=== PATIENT | female | born 1990 | race Caucasian/White ===

== ENCOUNTER 2022-08-15 06:31 | Day surgery (SDC) | payer BC, MEDICARE ==
[~2022-08-15 06:31] MED LIST: Albuterol 0.083% 2.5 MG/3 ML Neb Soln NEB PRN; HYDROmorphone 1 MG/ML Syringe IVPUSH PRN; Lactated Ringers 1,000 ML IV SCH; Metoclopramide 10 MG/2 ML SDV IVPUSH PRN; Morphine 2 MG/ML SYRINGE IVPUSH PRN; Naloxone 0.4 MG/ML SDV IVPUSH PRN; Ondansetron 4 MG/2 ML SDV IVPUSH PRN; Scopolamine 1.5 MG Transdermal Patch TOP ONE; Sodium Chloride 0.9% 10 ML Syringe FLUSH PRN; Sodium Chloride 0.9% 2.5 ML Syringe FLUSH PRN; Sodium Chloride 0.9% 20 ML SDV IV PRN; cefOXitin 2 GM in Premix Bag 1 BAG IV ONE; fentaNYL 50 MCG/ML SDV IVPUSH PRN
[2022-08-15] MEDS ORDERED: Bupivacaine 0.5% 30 ML SDV ONE (07:24)
[2022-08-15] MEDS ORDERED: Propofol 200 MG/20 ML SDV ONE (07:34)
[2022-08-15] MEDS ORDERED: Ondansetron 4 MG/2 ML SDV ONE (07:34)
[2022-08-15] MEDS ORDERED: Dexamethasone 4 MG/ML 5 ML MDV ONE (07:34)
[2022-08-15] MEDS ORDERED: fentaNYL 100 MCG/2 ML SDV ONE (07:34)
[2022-08-15] MEDS ORDERED: Lidocaine 2% 5 ML SDV ONE (07:34)
[2022-08-15] MEDS ORDERED: Ketorolac 30 MG/ML SDV ONE (07:34)
[2022-08-15] MEDS ORDERED: cefOXitin 1 GM Vial ONE (09:00)
== END 2022-08-15 11:35 | disposition home or self-care (01) ==
LOC: MW.SDS 06:31
PROVIDERS: ATTEND Surgery
DX: K60.3 Anal fistula (principal); F41.9 Anxiety disorder, unspecified; Z20.822 Contact with and (suspected) exposure to COVID-19; Z98.890 Other specified postprocedural states; Z90.49 Acquired absence of other specified parts of digestive tract; Z87.891 Personal history of nicotine dependence; Z79.899 Other long term (current) drug therapy
CPT/HCPCS: 46020; 81025; A9270; J0694; J1100; J1885; J2405; J2704; J3010; J3490; J7120

== ENCOUNTER 2022-11-29 08:54 | Emergency (ER) | payer BC ==
[2022-11-29] MEDS ORDERED: Ibuprofen 400 MG Tab PO ONE (09:27)
[2022-11-29] MEDS ORDERED: Acetaminophen 325 MG Tab PO ONE (09:27)
[2022-11-29] MEDS ORDERED: Dexamethasone 10 MG/ML SDV PO ONE (09:27)
[2022-11-29] MEDS ORDERED: Polymyxin B/Trimethoprim 10 ML Bottle EYEBOTH ONE (09:29)
[2022-11-29] MEDS ORDERED: Ofloxacin 0.3% Ophth Soln 5 ML Bottle EYEBOTH SCH (10:30)
== END 2022-11-29 10:33 | disposition home or self-care (01) ==
LOC: MW.ED 08:54
DX: J02.9 Acute pharyngitis, unspecified (principal); H10.9 Unspecified conjunctivitis; Z90.49 Acquired absence of other specified parts of digestive tract
CPT/HCPCS: 87651; 99283; A9270; J8540

== ENCOUNTER 2023-04-20 14:20 | Emergency (ER) | payer BC ==
[2023-04-20] MEDS ORDERED: Sodium Chloride 0.9% 2.5 ML Syringe FLUSH PRN (15:40)
[2023-04-20] MEDS ORDERED: Sodium Chloride 0.9% 10 ML Syringe FLUSH PRN (15:40)
[2023-04-20 15:56] LABS: BASOPHILS PERCENT AUTO 0.4 % (0.0-1.5); EOSINOPHILS ABSOLUTE AUTO 0.2 K/uL (0.0-0.7); EOSINOPHILS PERCENT AUTO 3.8 % (0.0-7.0); HEMATOCRIT 36.9 % (36.0-46.0); HEMOGLOBIN 12.1 g/dL (12.0-16.0); LYMPHOCYTES ABSOLUTE AUTO 1.8 K/uL (0.6-2.4); LYMPHOCYTES PERCENT AUTO 37.1 % (16.0-40.0); MEAN CORPUSCULAR HGB CONC 32.8 g/dL (31.0-37.0); MEAN CORPUSCULAR VOLUME 91.3 fL (80.0-98.0); MONOCYTES ABSOLUTE AUTO 0.5 K/uL (0.0-0.8); MONOCYTES PERCENT AUTO 9.9 % (0.0-15.0); NEUTROPHILS ABSOLUTE AUTO 2.3 K/uL (1.4-5.7); NEUTROPHILS PERCENT AUTO 48.8 % (48.0-80.0); NRBC ABSOLUTE 0 K/uL; PLATELET COUNT,PLT 248 K/uL (150-400); RED BLOOD CELL COUNT 4.04 M/uL (4.30-5.90); WHITE BLOOD CELL COUNT,WBC 4.77 K/uL (4.0-11.0)
[2023-04-20 16:26] LABS: ALANINE AMINOTRANSFERASE,ALT 36 IU/L (14-63); ALBUMIN 3.5 g/dL (3.4-5.0); ALKALINE PHOSPHATASE 53 U/L (46-116); ASPARTATE AMNIOTRANSFERASE,AST 21 IU/L (15-37); BILIRUBIN TOTAL 0.3 mg/dL (0.2-1.0); BLOOD UREA NITROGEN,BUN 25 mg/dL (7.0-18.0); CARBON DIOXIDE,CO2 28.2 mmol/L (21.0-32.0); CHLORIDE,CL 101 mmol/L (98-107); CREATININE 0.5 mg/dL (0.6-1.0); ESTIMATED GFR 126 mL/min (>60); GLUCOSE RANDOM 88 mg/dL (74-106); MAGNESIUM 2.1 mg/dL (1.8-2.4); POTASSIUM,K 3.9 mmol/L (3.5-5.1); PROTEIN TOTAL,TP 7.1 g/dL (6.4-8.2); SODIUM,NA 140 mmol/L (136-145)
[2023-04-20 16:30] LABS: LACTIC ACID 0.6 mmol/L (0.4-2.0)
== END 2023-04-20 16:44 | disposition home or self-care (01) ==
LOC: MW.ED 14:20
DX: T81.30XA Disruption of wound, unspecified, initial encounter (principal)
CPT/HCPCS: 36415; 80053; 83605; 83735; 84703; 85025; 87651; 99283; J3490